=== PATIENT | male | born 1955 | race Caucasian/White ===

== ENCOUNTER → 2017-11-16 | Outpatient (CLI) | payer OTHER ==
[~2017-11-16] MED LIST: MULT-506 PO; OMEG10007 PO; OXYC-57 PO; POTA1080 PO
== END | disposition home or self-care (01) ==
LOC: C.PATHSPEC 17:22
PROVIDERS: ATTEND Plastic Surgery
DX: D22.5 Melanocytic nevi of trunk (principal)

== ENCOUNTER 2018-09-06 10:40 | Inpatient (IN) ==
--- OUTSIDE RECORDS SUMMARY | 2018-09-06 10:42 | External Medical Summary | Continuity of Care Document ---
:1955 Author Name Victoriano Pagan, Provider Address Unavailable Unavailable , Care Team Providers Name Role Phone Unavailable Unavailable Unavailable Rd Madison [email or web address] Problems BPH (benign prostatic hyperplasia) (600.00) (N40.0) Nephrolithiasis (592.0) (N20.0) Benign prostatic hypertrophy with urinary obstruction (600.0 1) (N40.1) Melanoma (172.9) (C43.9) History of basal cell carcinoma (V10.83) (Z85.828) Encounter for prostate cancer screening (V76.44) (Z12.5) History of malignant melanoma of skin (V10.82) (Z85.820) Atypical nevi (216.9) (D22.9) Verrucous papule (702.19) (L82.1) Seborrheic dermatitis (690.10) (L21.9) Basal cell carcinoma of face (173.31) (C44.310) Neoplasm of uncertain behavior of skin (238.2) (D48.5) Nevus, melanocytic (216.9) (D22.9) Other benign neoplasm of skin (216.9) (D23.9) Allergies and Adverse Reactions No Known Drug Allergies (Allergy) Medications Red Yeast Rice CAPS , M.D. Refills: 0 Aspirin 81 MG TABS , M.D. Refills: 0 Lutein 20 MG Oral Tablet , M.D. Refills: 0 Fish Oil CAPS , M.D. Refills: 0 Potassium Citrate ER 10 MEQ (1080 MG) Or al Tablet Extended Release; TAKE 1 TABLET TWICE DAILY. Latasha Madison Start: 23-Apr-2012 Quantity: 180 Refills: 3 Procedures History of Renal Lithotripsy Status: Com pleted History of Jaw Surgery Status: Completed Immunizations Immunizations not documented Family History Unknown Family Member Family history of Colon Cancer (V16.0) Status: Active C omments: Family History Mother Family history of macular degeneration (V19.19) (Z83.518) St atus: Active Sibling Family history of hypertension (V17.49) (Z82.49) Status: Act ami Social History - Smoking Status Never smoker Plan of Treatment Planned Observations Planned Goals not documented Results No Known Results Results not documented Encounters Appointment; Samantha Kwong PA-C 30-Nov-2017 10:30 Encounter Diagnosis: Problem not documented Appointment; Mariah Martinez M.D. 16-Nov-2017 13:00 Encounter Diagnosis: Problem not documented Appointment; Susan Palmer PA-C 08-Aug-2017 10:30 Encounter Diagnosis: Problem not documented Appointment; Ernesto Doss M.D. 15-Feb-2017 10:40 Encounter Diagnosis: Problem not documented
[2018-09-06] MEDS ORDERED: KETOROLAC TROMETHAMINE 15 MG/ML VIAL IV STA (10:51)
[2018-09-06] MEDS ORDERED: SODIUM CHLORIDE 0.9% 1000ML 1,000 ML IV SCH (11:00)
[2018-09-06] MEDS ORDERED: ACETAMINOPHEN 1,000 MG/100 ML VIAL IV STA (11:21)
[2018-09-06] MEDS ORDERED: ONDANSETRON INJ 2 MG/ML 2 ML VIAL IV STA (11:21)
[2018-09-06] MEDS ORDERED: MoRPHine SULFATE 10 MG/ML CARP/VIAL IV STA ×2 (11:21→13:07)
[2018-09-06 11:37] LABS: Basophils # (auto) 0.02 K/uL (0-0.2); Basophils % (auto) 0.3 %; Eosinophils # (auto) 0.12 K/uL (0-0.5); Eosinophils % (auto) 2.1 %; Hematocrit (blood only) 45.3 % (42-52); Hemoglobin 16.6 g/dL (14.0-18.0); Immature Granulocytes # (auto) 0.01 K/uL (0.00-0.02); Immature Granulocytes % (auto) 0.2 %; Lymphocytes # (auto) 1.03 K/uL (1.2-3.4); Lymphocytes % (auto) 17.7 %; Mean Corpuscular Hgb Conc 36.6 g/dL (32-36); Mean Corpuscular Volume 84.7 fL (80-100); Mean Platelet Volume 8.9 fL (7.4-10.4); Monocytes # (auto) 0.37 K/uL (0.11-0.59); Monocytes % (auto) 6.3 %; Neutrophils # (auto) 4.28 K/uL (1.4-6.5); Neutrophils % (auto) 73.4 %; Platelet Count 158 K/uL (130-400); RDW Coefficient of Variation 12.8 % (11.5-14.5); RDW Standard Deviation 38.6 fL (36.4-46.3); Red Blood Count 5.35 M/uL (4.7-6.1); White Blood Count 5.83 K/uL (4.8-10.8)
[2018-09-06 11:37] LABS: Appearance Urine Clear (Clear); Bacteria Urine Automated Negative (Negative); Bilirubin Urine Negative (Negative); Blood Urine 3+ (Negative); Color Urine Yellow; Glucose Urine UA Negative (Negative); Ketones Urine Negative (Negative); Leukocyte Esterase Urine Trace (Negative); Nitrite Urine Negative (Negative); Protein Urine Trace (Negative); RBC Urine Automated >30 /hpf (0-4); Specific Gravity Urine 1.021 (1.000-1.030); Urobilinogen Urine Negative (Negative)
[2018-09-06 12:06] LABS: Albumin Level 3.9 gm/dl (3.4-5.0); Calcium 8.5 mg/dl (8.5-10.1); Creatinine Clr Calc Pharmacy 76.7 ml/min; Est GFR (African American) 83.3; Est GFR (Non-African American) 71.9; Potassium 3.8 mmol/L (3.5-5.1)
[2018-09-06 12:10] LABS: Albumin Globulin Ratio 1.1 (0.9-2); Bilirubin,Total 0.9 mg/dl (0.2-1); Globulin 3.5 gm/dl (2.5-4.0); Total Protein 7.4 gm/dl (6.4-8.2)
[2018-09-06] MEDS ORDERED: IOVERSOL 100ml IV PRN (12:27)
--- NOTE | 2018-09-06 12:41 | CT Scan Report ---
CT abd pelvis IV con only CLINICAL HISTORY: 63 years-old Male presenting with left flank pain, history of kidney stones. TECHNIQUE: Multidetector CT of the abdomen and pelvis was performed after the administration of intra venous contrast. IV contrast: 94 mL of Optiray 320. One or more dose lowering techniques were used co nsistent with the principles of ALARA (as low as reasonably achievable), including automatic exposure control, mA or kV adjustment to individual patient size, and/or use of iterative reconstruction. COMPARISON: 03/10/2007.. CT DOSE (mGy.cm): The estimated cumulative dose is 476.14 mGy.cm. FINDINGS: Bobbin Winder topogram: Vasectomy clips noted. Lung bases: Normal heart size. No pericardial or pleural effusion. Minimal dependent changes likely a telectasis. Liver: Normal morphology. No liver lesion. Patent hepatic vasculature. Biliary: No intrahepatic or extrahepatic biliary ductal dilatation. Normal gallbladder. Pancreas: Normal. Spleen: Normal. Adrenal glands: Normal. Kidneys and ureters: Moderate left hydroureteronephrosis. Innumerable left renal calculi. Delayed per fusion of the left kidney with moderate to severe left perinephric fat infiltration. Expansion of the left renal parenchyma. There is no significant parenchymal hypoattenuation. Right kidney normal. Dis hans left ureteral calculus measuring 6 mm, which is similar to prior and likely nonobstructing. Previ ously noted adjacent distal left ureteral calculus has migrated to the left ureterovesical junction a nd is likely the source of the presumed obstruction or partial obstruction. This measures 6 mm. Bladder: Nonobstructing bladder calculus measuring 5 mm noted. This is also new from prior. Pelvic organs: Prostate and seminal vesicles normal. Bowel: Normal appendix. No bowel obstruction. Peritoneal cavity: No free fluid or intraperitoneal gas. Lymph nodes: No enlarged lymph nodes in the abdomen or pelvis. Vasculature: Atherosclerosis of the normal caliber abdominal aorta. IVC patent. Abdominal wall: Fat-containing inguinal hernias suggested. Musculoskeletal: Degenerative changes of the spine. IMPRESSION: 1. Obstructing or partially obstructing 6 mm calculus at the left ureterovesical junction new from p rior exam. Persistence nonobstructing 6 mm calculus in the distal left ureter. Nonobstructing bladder calculus also noted, new from prior. 2. Moderate left hydroureteronephrosis. Innumerable nonobstructing left renal calculi. Electronically signed by: Casey Loomis M.D. 09/06/2018 12:39 PM
[2018-09-06] MEDS ORDERED: PROCHLORPERAZINE 2 ML IV ONE (14:04)
[2018-09-06] MEDS ORDERED: PROMETHAZINE HCL 12.5 MG in SODIUM CHLORIDE 0.9% 50 ML IV PRN (14:27)
[2018-09-06] MEDS ORDERED: HYDROmorphone INJ 1 MG/ML SYRINGE IV PRN (14:28)
[2018-09-06] MEDS ORDERED: cefTRIAXone SODIUM 1,000 MG in DEXTROSE 5% 50 ML IV SCH (14:30)
--- NOTE | 2018-09-06 14:46 | History & Physical Report ---
Date of Service September 06, 2018 Assessment & Plan (1) Hydroureteronephrosis: Due to obstructing left UVJ stone - Consult urology for additional interventions - spoke with SHAWN Mckinnon regarding consult - NPO after midnight in anticipation of potential procedure tomorrow - IVF hydration with lactated ringers - Monitor labs - BUN mildly elevated at present - Started empiric antibiotics (ceftriaxone) due to urinary stasis - Pain control with hydromorphone/Toradol - Alternating Zofran/Phenergan for nausea (2) Kidney stones: See above plan of care. Patient seen and reviewed with attending physician, Dr. Patricio. Plan of care discussed and as outlined above. Daughter updated at bedside. All questions answered. Carter Pham PA-C History of Present Illness Chief Complaint: Left flank pain Primary Care Provider: Soo Christopher DO This is a 63 y/o male with a PMH of recurrent nephrolithiasis, melanoma and basal cell carcinoma who presents to the ED today with left flank pain, nausea and vomiting, found secondary to obstructing left UVJ stone. Last week, pt had a one day episode of gross hematuria but no pain - resolved without intervention and felt fine until this morning. Around 8 am today, pt started with left flank pain that radiates to left thoracic area and LLQ of abdomen. No radiation to groin. Associated nausea with one episode of non-bloody emesis. Pain at its worst was 8-9 out of 10. In ED, pt has received morphine, toradol, zofran and compazine for symptoms with partial improvement. No gross hematuria today. Pt had chills this morning but denies fevers or sweats. He reports that his last episode of obstructing stone was a few years ago. He was seen by Dr. Madison for urology in the past but has not been seen for a few years since he was doing better. Pt reports that he drinks around 1 gallon of water per day, which seems to help with stone prevention. He does drink ~24 oz of coffee daily but denies iced tea/soda. He did try two Percocet that he had leftover from episode in 2016 for his pain this morning but no relief. Allergies Allergy/AdvReac Type Severity Reaction Status Date / Time No Known Allergies Allergy Unknown Verified 09/06/18 11:37 Home Medications Home Medications Medication Instructions Recorded Confirmed Type aspirin 81 mg PO DAILY 09/06/18 09/06/18 History lutein 6 mg PO DAILY 09/06/18 09/06/18 History omega 1-dlp-cmz-fish oil [Fish Oil] 1 cap PO DAILY 09/06/18 09/06/18 History potassium citrate 10 meq PO BID 09/06/18 09/06/18 History red yeast rice 1,200 mg PO DAILY 09/06/18 09/06/18 History Past Med/Surg History Medical History Kidney stones (Chronic) History of basal cell carcinoma (Resolved) History of melanoma (Resolved) Surgical History History of lithotripsy multiple procedures History of nephrolithotomy with removal of calculi Family History Father Hypertension Stroke Mother Hypertension Pancreatic cancer COPD (chronic obstructive pulmonary disease) CHF (congestive heart failure) Diabetes Sister Ulcerative colitis Social History Preferred Language: [employer] Required: No Beliefs That Will Affect Care: None Current Living Situation: Alone current occupational status: retired Other Information That Helps Us Care for You: No Feels Safe at Home: Yes Safety Concerns: Feels Safe At This Time Smoking Status: Never smoker Hx Alcohol Use: Yes Alcohol type: beer Alcohol Intake Frequency Comment: "occasional" Hx Substance Use: No Review of Systems Review of Systems: All systems reviewed & are unremarkable except as noted in HPI & below Constitutional: + chills; no fever, no sweats and no fatigue Eyes: no diplopia and no worsening vision Ear, Nose, Mouth, Throat: no nasal congestion, no nasal discharge, no sore throat and no dysphagia Respiratory: no cough, no dyspnea, no hemoptysis and no wheezing Cardiovascular: no chest pain, no palpitations, no lightheadedness, no syncope and no edema Gastrointestinal: + abdominal pain, + nausea and + vomiting; no change in bowel habits and no diarrhea/loose stools Genitourinary: + flank pain; no urinary frequency and no hematuria Musculoskeletal: no back pain, no neck pain, no joint pain and no myalgia Integumentary: no rash and no skin ulcer Neurologic: no falls, no tingling, no numbness, no tremor(s), no seizure-like activity, no headache(s) and no confusion Psychiatric: no depression and no anxiety Physical Exam Constitutional: WD/WN, vitals as above + uncomfortable Eyes: PERRL, conjunctivae normal, anicteric sclerae ENMT: external ear and nose normal, oropharynx normal Neck: trachea midline Respiratory: no respiratory distress and does not use accessory muscles Auscultation: lungs clear to auscultation bilaterally; no rales, no rhonchi and no wheezes Cardiovascular: Rate/Rhythm: regular rate and regular rhythm Heart Sounds: no gallop, no murmur and no cardiac rub Vessels: no carotid bruit Extremities: normal capillary refill; no calf tenderness and no edema Gastrointestinal (Abdomen): Inspection/Auscultation: normal bowel sounds; abdomen not distended Percussion/Palpation: + abdomen tender (diffusely but worse in LLQ and left flank area) and abdomen soft +left CVA tenderness Musculoskeletal: Head/Neck/Chest: normocephalic, head atraumatic and neck supple Extremities: no muscle atrophy, no cyanosis and no clubbing Skin: no rashes, warm and dry Neurologic: moves all extremities; no focal motor deficits Speech / Cognition: no expressive aphasia Cranial Nerves: tongue midline Psychiatric: A+Ox3, euthymic affect Results & Data Vital Signs (Past 12 Hours) Vital Signs Temp Pulse Pulse Resp BP BP Pulse Ox 09/06/18 13:45 66 15 128/79 09/06/18 13:40 54 L 17 09/06/18 13:31 48 L 14 101/65 09/06/18 13:30 49 L 12 09/06/18 13:20 46 L 12 09/06/18 13:16 53 L 11 L 113/70 09/06/18 13:10 54 L 15 09/06/18 13:01 52 L 12 119/72 09/06/18 13:00 54 L 16 09/06/18 12:56 55 L 15 116/74 09/06/18 12:50 48 L 7 L 09/06/18 12:46 55 L 55 L 13 116/74 116/74 98 09/06/18 12:40 59 L 13 09/06/18 12:34 60 13 128/78 09/06/18 12:33 60 18 09/06/18 12:20 56 L 12 09/06/18 12:16 53 L 14 109/70 09/06/18 12:10 56 L 14 09/06/18 12:01 48 L 111/70 09/06/18 12:00 52 L 15 09/06/18 11:59 57 L 14 09/06/18 11:46 53 L 13 103/73 09/06/18 10:43 36.5 C 67 20 190/112 H 96 Laboratory Results Laboratory Results - last 24 hr 09/06/18 09/06/18 09/06/18 11:02 11:02 11:20 WBC 5.83 RBC 5.35 Hgb 16.6 Hct 45.3 MCV 84.7 MCH 31.0 MCHC 36.6 H RDW Std Deviation 38.6 RDW Coeff of David 12.8 Plt Count 158 MPV 8.9 Immature Gran % (Auto) 0.2 Neut % (Auto) 73.4 Lymph % (Auto) 17.7 [place] % (Auto) 6.3 Eos % (Auto) 2.1 Baso % (Auto) 0.3 Immature Gran # (Auto) 0.01 Neut # (Auto) 4.28 Lymph # (Auto) 1.03 L [place] # (Auto) 0.37 Eos # (Auto) 0.12 Baso # (Auto) 0.02 Sodium 135 L Potassium 3.8 Chloride 105 Carbon Dioxide 24 Anion Gap 6.0 BUN 24 H Creatinine 1.09 Est Cr Clr Drug Dosing 76.7 Est GFR ( Amer) 83.3 Est GFR (Non-Af Amer) 71.9 BUN/Creatinine Ratio 22.0 H Glucose 118 H Calcium 8.5 Total Bilirubin 0.9 AST 26 ALT 33 Alkaline Phosphatase 66 Total Protein 7.4 Albumin 3.9 Globulin 3.5 Albumin/Globulin Ratio 1.1 Lipase 100 Specimen Hemolysis Urine Color Yellow Urine Appearance Clear Urine pH 5.0 Ur Specific [place] 1.021 Urine Protein Trace H Urine Glucose (UA) Negative Urine Ketones Negative Urine Blood 3+ H Urine Nitrite Negative Urine Bilirubin Negative Urine Urobilinogen Negative Ur Leukocyte Esterase Trace H Urine WBC (Auto) 1-5 Urine RBC (Auto) >30 H U Hyaline Cast (Auto) 1-5 U Epithel Cells (Auto) 5-10 H Urine Bacteria (Auto) Negative Diagnostic Findings CT Abd/Pel - IMPRESSION: 1. Obstructing or partially obstructing 6 mm calculus at the left ureterovesical junction new from prior exam. Persistence nonobstructing 6 mm calculus in the distal left ureter. Nonobstructing bladder calculus also noted, new from prior. 2. Moderate left hydroureteronephrosis. Innumerable nonobstructing left renal calculi. Medications Administered Ioversol (Optiray 320 100ml) 94 ml IV ONCE PRN PRN Reason: Interaction Checking Stop: 09/10/18 12:26 Last Admin: 09/06/18 12:28 Dose: 94 ml Documented by: [id number] Discontinued Medications Sodium Chloride (Nss 1000ml) 1,000 mls @ 999 mls/hr IV .Q1H1M SHAWN Stop: 09/06/18 12:00 Last Infusion: 09/06/18 12:22 Dose: 0 mls/hr Documented by: [id number] Admin: 09/06/18 11:14 Dose: 999 mls/hr Documented by: [id number] Acetaminophen (Ofirmev) 1,000 mg in 100 mls @ 400 mls/hr IV NOW STA Stop: 09/06/18 11:35 Last Infusion: 09/06/18 12:21 Dose: 0 mls/hr Documented by: [id number] Admin: 09/06/18 11:25 Dose: 400 mls/hr Documented by: [id number] Prochlorperazine (Compazine) 2 mls @ 1 mls/min IV ONE ONE Stop: 09/06/18 14:05 Last Admin: 09/06/18 14:17 Dose: 1 mls/min Documented by: [id number] Ketorolac Tromethamine (Toradol) 15 mg IV NOW STA Stop: 09/06/18 10:52 Last Admin: 09/06/18 11:14 Dose: 15 mg Documented by: [id number] Morphine Sulfate (Morphine Sulfate) 8 mg IV NOW STA Stop: 09/06/18 11:22 Last Admin: 09/06/18 11:26 Dose: 8 mg Documented by: [id number] Morphine Sulfate (Morphine Sulfate) 10 mg IV NOW STA Stop: 09/06/18 13:08 Last Admin: 09/06/18 13:11 Dose: 10 mg Documented by: [id number] Ondansetron HCl (Zofran) 4 mg IV NOW STA Stop: 09/06/18 11:22 Last Admin: 09/06/18 11:25 Dose: 4 mg Documented by: [id number] Code Status & VTE Plan Code Status Full resuscitation Supervising Physician Co-Signing Physician Notes Attending addendum: Patient seen and examined, care coordinated with Danielle Almodovar PA-C This is a 62-year-old male with history of recurrent renal stones/ureteric stone, underwent multiple lithotripsy/ureteric stent in the past Follows with [facility] physician group urology Presents with 2 to 3 days of left flank pain with radiation down to groin, associated with nausea vomiting, afebrile, noticed hematuria yesterday, none today CT abdomen pelvis shows a 6 mm obstructing stone at the ureteral vesicle junction, Patient will be admitted to medical floor, IV fluids, empiric antibiotic with IV Rocephin, urology consulted, patient will need urologic procedure/stent CODE STATUS full code discussed with patient DVT prophylaxis SCD and teds, pharmacological anticoagulation avoided, as patient will need a urology procedure Disposition, expected to be discharged home when medically stable Plan of care updated to patient's daughter present at bedside Please refer to further documentation by Danielle Lopez PA-C for discussion of other chronic issues Erica Patricio MD
[2018-09-06] MEDS ORDERED: POLYETHYLENE (MIRALAX) 17 GM PACK PO PRN (17:11)
[2018-09-06] MEDS ORDERED: ONDANSETRON INJ 2 MG/ML 2 ML VIAL IV PRN (17:11)
[2018-09-06] MEDS: LACTATED RINGER'S 1,000 ML IV SCH (17:43)
[2018-09-06] MEDS: cefTRIAXone SODIUM 2,000 MG in DEXTROSE 5% 50 ML IV SCH (17:58)
--- NOTE | 2018-09-06 18:35 | Emergency Department Note ---
Entered by Isabela Mejia acting as a scribe for Oral Neri MD History of Present Illness General Chief complaint: Kidney Stone Stated complaint: LT SIDED KIDNEY STONE Time Seen by Provider: 09/06/18 10:51 Source: patient Limitations: no limitations History of Present Illness Provider complaint: kidney stone Onset (ago): hour(s) 3 Location: abdomen Maximum Pain Intensity: 8 Associated symptoms: + denies other symptoms (diarrhea, congestion), + fever/chills (chills no fevers) and + other (+left abdominal pain ); no chest pain, no cough and no nausea/vomiting The patient is a 63 year old male who presents to the Emergency Room with complaints of kidney stone pain that began 3 hours prior to arrival. The patient states that his pain in his left abdomen. The patient states that he has a history of kidney stones and states that this pain feels similar to his pain from prior kidney stones. The patient states that he has chills but denies any fevers, chest pain, cough, congestion, nausea, vomiting, or diarrhea. The patient states that he had blood in his urine yesterday but denies any blood in his urine today. The patient states that he just passed a kidney stone 1 week prior to arrival. The patient denies being on any blood thinners. Home Medications Home Medications Medication Instructions Recorded Confirmed Type aspirin 81 mg PO DAILY 09/06/18 09/06/18 History lutein 6 mg PO DAILY 09/06/18 09/06/18 History omega 2-pxb-xqz-fish oil [Fish Oil] 1 cap PO DAILY 09/06/18 09/06/18 History potassium citrate 10 meq PO BID 09/06/18 09/06/18 History red yeast rice 1,200 mg PO DAILY 09/06/18 09/06/18 History Allergies Allergy/AdvReac Type Severity Reaction Status Date / Time No Known Allergies Allergy Unknown Verified 09/06/18 11:37 Past Med/Surg History Medical History Kidney stones (Chronic) History of basal cell carcinoma (Resolved) History of melanoma (Resolved) Surgical History History of lithotripsy multiple procedures History of nephrolithotomy with removal of calculi Family History Father Hypertension Stroke Mother Hypertension Pancreatic cancer COPD (chronic obstructive pulmonary disease) CHF (congestive heart failure) Diabetes Sister Ulcerative colitis Social History current occupational status: retired Feels Safe at Home: Yes Smoking Status: Never smoker Hx Alcohol Use: Yes Alcohol Intake Frequency Comment: "occasional" Hx Substance Use: No Review of Systems See HPI for pertinent positives & negatives. and A total of 10 systems reviewed and were otherwise negative Physical Exam Vital Signs Vital Signs - 24 hr 09/06/18 10:43 09/06/18 11:46 09/06/18 11:59 Temperature 36.5 C Temperature Source Oral Sepsis Recent Fever Within 48 Hours No Sepsis New/Unexplained Change in Mental Status No Sepsis Action Taken by Nursing No Action Required Pulse Rate 67 53 L 57 L Pulse Rate [Apical] Respiratory Rate 20 13 14 Blood Pressure 190/112 H 103/73 Blood Pressure [Left Arm] Blood Pressure Mean 138 83 Blood Pressure Mean [Left Arm] Pulse Oximetry 96 Oxygen Delivery Method Room Air 09/06/18 12:00 09/06/18 12:01 09/06/18 12:10 Temperature Temperature Source Sepsis Recent Fever Within 48 Hours Sepsis New/Unexplained Change in Mental Status Sepsis Action Taken by Nursing Pulse Rate 52 L 48 L 56 L Pulse Rate [Apical] Respiratory Rate 15 14 Blood Pressure 111/70 Blood Pressure [Left Arm] Blood Pressure Mean 83 Blood Pressure Mean [Left Arm] Pulse Oximetry Oxygen Delivery Method 09/06/18 12:16 09/06/18 12:20 09/06/18 12:33 Temperature Temperature Source Sepsis Recent Fever Within 48 Hours Sepsis New/Unexplained Change in Mental Status Sepsis Action Taken by Nursing Pulse Rate 53 L 56 L 60 Pulse Rate [Apical] Respiratory Rate 14 12 18 Blood Pressure 109/70 Blood Pressure [Left Arm] Blood Pressure Mean 83 Blood Pressure Mean [Left Arm] Pulse Oximetry Oxygen Delivery Method 09/06/18 12:34 09/06/18 12:40 09/06/18 12:46 Temperature Temperature Source Sepsis Recent Fever Within 48 Hours Sepsis New/Unexplained Change in Mental Status Sepsis Action Taken by Nursing Pulse Rate 60 59 L 55 L Pulse Rate [Apical] 55 L Respiratory Rate 13 13 13 Blood Pressure 128/78 116/74 Blood Pressure [Left Arm] 116/74 Blood Pressure Mean 94 88 Blood Pressure Mean [Left Arm] 88 Pulse Oximetry 98 Oxygen Delivery Method Room Air 09/06/18 12:50 09/06/18 12:56 09/06/18 13:00 Temperature Temperature Source Sepsis Recent Fever Within 48 Hours Sepsis New/Unexplained Change in Mental Status Sepsis Action Taken by Nursing Pulse Rate 48 L 55 L 54 L Pulse Rate [Apical] Respiratory Rate 7 L 15 16 Blood Pressure 116/74 Blood Pressure [Left Arm] Blood Pressure Mean 88 Blood Pressure Mean [Left Arm] Pulse Oximetry Oxygen Delivery Method 09/06/18 13:01 09/06/18 13:10 09/06/18 13:16 Temperature Temperature Source Sepsis Recent Fever Within 48 Hours Sepsis New/Unexplained Change in Mental Status Sepsis Action Taken by Nursing Pulse Rate 52 L 54 L 53 L Pulse Rate [Apical] Respiratory Rate 12 15 11 L Blood Pressure 119/72 113/70 Blood Pressure [Left Arm] Blood Pressure Mean 87 84 Blood Pressure Mean [Left Arm] Pulse Oximetry Oxygen Delivery Method 09/06/18 13:20 09/06/18 13:30 09/06/18 13:31 Temperature Temperature Source Sepsis Recent Fever Within 48 Hours Sepsis New/Unexplained Change in Mental Status Sepsis Action Taken by Nursing Pulse Rate 46 L 49 L 48 L Pulse Rate [Apical] Respiratory Rate 12 12 14 Blood Pressure 101/65 Blood Pressure [Left Arm] Blood Pressure Mean 77 Blood Pressure Mean [Left Arm] Pulse Oximetry Oxygen Delivery Method 09/06/18 13:40 09/06/18 13:45 09/06/18 14:48 Temperature Temperature Source Sepsis Recent Fever Within 48 Hours Sepsis New/Unexplained Change in Mental Status Sepsis Action Taken by Nursing Pulse Rate 54 L 66 Pulse Rate [Apical] 52 L Respiratory Rate 17 15 18 Blood Pressure 128/79 Blood Pressure [Left Arm] 126/72 Blood Pressure Mean 95 Blood Pressure Mean [Left Arm] 90 Pulse Oximetry Oxygen Delivery Method GENERAL: Awake, alert, uncomfortable appearing, no distress. HENT: Normocephalic, atraumatic. TM's normal. Oropharynx with dry mucous membranes and otherwise unremarkable. EYES: PERRL. EOMI. Normal conjunctiva. Sclera non-icteric. NECK: Supple. No nuchal rigidity. FROM. No JVD or bruit. RESPIRATORY: Normal exam. CARDIAC: RRR. No murmur. ABDOMEN: Soft, non distended. Mild LLQ and left flank tenderness. No rebound or guarding. No masses. RECTAL: Deferred. MUSCULOSKELETAL: Unremarkable. No edema. No discoloration. Gross motor strength symmetric. NEURO: Normal sensorium. No sensory or motor deficits noted. SKIN: No rash or jaundice noted. LYMPH: No adenopathy. Course 1118: The patient was evaluated in room C12B, and a complete history and physical examination were performed. 1341: I checked on the patient and updated him on his results. The patient still has nausea. 1408: I discussed the patient's case with Dr. Mihir Roberts Hospitalist who will evaluate the patient for further hospitalization. Consultations Consultation #1: Dr. Mihir Roberts Hospitalist Time: 14:08 Administered Medications Lactated Ringer's (Lr) 1,000 mls @ 125 mls/hr IV .Q8H SHAWN Stop: 10/06/18 14:29 Last Infusion: 09/06/18 17:58 Dose: 0 mls/hr Documented by: [id number] Admin: 09/06/18 17:43 Dose: 125 mls/hr Documented by: [id number] Ceftriaxone Sodium 2,000 mg/ (Dextrose) 70 mls @ 100 mls/hr IV Q24H SHAWN; Pro tocol Stop: 09/16/18 17:59 Last Admin: 09/06/18 17:58 Dose: 100 mls/hr Documented by: [id number] Ondansetron HCl (Zofran) 4 mg IV Q6H PRN PRN Reason: Nausea Stop: 10/06/18 17:10 Last Admin: 09/06/18 17:42 Dose: 4 mg Documented by: [id number] Discontinued Medications Sodium Chloride (Nss 1000ml) 1,000 mls @ 999 mls/hr IV .Q1H1M SHAWN Stop: 09/06/18 12:00 Last Infusion: 09/06/18 12:22 Dose: 0 mls/hr Documented by: [id number] Admin: 09/06/18 11:14 Dose: 999 mls/hr Documented by: [id number] Acetaminophen (Ofirmev) 1,000 mg in 100 mls @ 400 mls/hr IV NOW STA Stop: 09/06/18 11:35 Last Infusion: 09/06/18 12:21 Dose: 0 mls/hr Documented by: [id number] Admin: 09/06/18 11:25 Dose: 400 mls/hr Documented by: [id number] Prochlorperazine (Compazine) 2 mls @ 1 mls/min IV ONE ONE Stop: 09/06/18 14:05 Last Admin: 09/06/18 14:17 Dose: 1 mls/min Documented by: [id number] Ceftriaxone Sodium 1,000 mg/ (Dextrose) 60 mls @ 100 mls/hr IV DAILY SHAWN; Protocol Stop: 09/16/18 14:29 Last Admin: 09/06/18 17:53 Dose: Not Given Documented by: [id number] Ioversol (Optiray 320 100ml) 94 ml IV ONCE PRN PRN Reason: Interaction Checking Stop: 09/10/18 12:26 Last Admin: 09/06/18 12:28 Dose: 94 ml Documented by: [id number] Ketorolac Tromethamine (Toradol) 15 mg IV NOW STA Stop: 09/06/18 10:52 Last Admin: 09/06/18 11:14 Dose: 15 mg Documented by: [id number] Morphine Sulfate (Morphine Sulfate) 8 mg IV NOW STA Stop: 09/06/18 11:22 Last Admin: 09/06/18 11:26 Dose: 8 mg Documented by: [id number] Morphine Sulfate (Morphine Sulfate) 10 mg IV NOW STA Stop: 09/06/18 13:08 Last Admin: 09/06/18 13:11 Dose: 10 mg Documented by: [id number] Ondansetron HCl (Zofran) 4 mg IV NOW STA Stop: 09/06/18 11:22 Last Admin: 09/06/18 11:25 Dose: 4 mg Documented by: [id number] Medical Decision Making Differential Diagnosis Differential diagnosis: Etiologies such as shingles, pyelonephritis/UTI, renal colic, appendicitis, diverticulitis, mesenteric ischemia, torsion, aortic pathology, infections, inflammatory bowel disease, bowel obstruction, PUD, biliary pathology, as well as others were entertained.. Medical Records Attestation: I reviewed the patient's medical records. Home Medications Current Medication List: was personally reviewed by me Laboratory Data Attestation: I reviewed the patient's lab results. Result diagrams: 09/06/18 11:02 09/06/18 11:02 Lab Results 09/06/18 09/06/1809/06/19 Range/Units 11:02 11:02 11:20 WBC 5.83 (4.8-10.8) K/uL RBC 5.35 (4.7-6.1) M/uL Hgb 16.6 (14.0-18.0) g/dL Hct 45.3 (42-52) % MCV 84.7 (80-100) fL MCH 31.0 (25-34) pg MCHC 36.6 H (32-36) g/dL RDW Std Deviation 38.6 (36.4-46.3) fL RDW Coeff of David 12.8 (11.5-14.5) % Plt Count 158 (130-400) K/uL MPV 8.9 (7.4-10.4) fL Immature Gran % (Auto) 0.2 % Neut % (Auto) 73.4 % Lymph % (Auto) 17.7 % [place] % (Auto) 6.3 % Eos % (Auto) 2.1 % Baso % (Auto) 0.3 % Immature Gran # (Auto) 0.01 (0.00-0.02) K/uL Neut # (Auto) 4.28 (1.4-6.5) K/uL Lymph # (Auto) 1.03 L (1.2-3.4) K/uL [place] # (Auto) 0.37 (0.11-0.59) K/uL Eos # (Auto) 0.12 (0-0.5) K/uL Baso # (Auto) 0.02 (0-0.2) K/uL Sodium 135 L (136-145) mmol/L Potassium 3.8 (3.5-5.1) mmol/L Chloride 105 (98-107) mmol/L Carbon Dioxide 24 (21-32) mmol/L Anion Gap 6.0 (3-11) BUN 24 H (7-18) mg/dl Creatinine 1.09 (0.6-1.4) mg/dl Est Cr Clr Drug Dosing 76.7 ml/min Est GFR ( Amer) 83.3 Est GFR (Non-Af Amer) 71.9 BUN/Creatinine Ratio 22.0 H (10-20) Glucose 118 H (70-99) mg/dl Calcium 8.5 (8.5-10.1) mg/dl Total Bilirubin 0.9 (0.2-1) mg/dl AST 26 (15-37) U/L ALT 33 (12-78) U/L Alkaline Phosphatase 66 (45-117) U/L Total Protein 7.4 (6.4-8.2) gm/dl Albumin 3.9 (3.4-5.0) gm/dl Globulin 3.5 (2.5-4.0) gm/dl Albumin/Globulin Ratio 1.1 (0.9-2) Lipase 100 (73-393) U/L Specimen Hemolysis Urine Color Yellow Urine Appearance Clear (Clear) Urine pH 5.0 (4.5-7.5) Ur Specific [place] 1.021 (1.000-1.030) Urine Protein Trace H (Negative) Urine Glucose (UA) Negative (Negative) Urine Ketones Negative (Negative) Urine Blood 3+ H (Negative) Urine Nitrite Negative (Negative) Urine Bilirubin Negative (Negative) Urine Urobilinogen Negative (Negative) Ur Leukocyte Esterase Trace H (Negative) Urine WBC (Auto) 1-5 (0-5) /hpf Urine RBC (Auto) >30 H (0-4) /hpf U Hyaline Cast (Auto) 1-5 (0-5) /lpf U Epithel Cells (Auto) 5-10 H (0-5) /lpf Urine Bacteria (Auto) Negative (Negative) Imaging Data Radiologist's Impression: Radiology results as stated below per my review and the radiologist's interpretation: CT abd pelvis IV con only CLINICAL HISTORY: 63 years-old Male presenting with left flank pain, history of kidney stones. TECHNIQUE: Multidetector CT of the abdomen and pelvis was performed after the administration of intravenous contrast. IV contrast: 94 mL of Optiray 320. One or more dose lowering techniques were used consistent with the principles of ALARA (as low as reasonably achievable), including automatic exposure control, mA or kV adjustment to individual patient size, and/or use of iterative reconstruction. COMPARISON: 03/10/2007.. CT DOSE (mGy.cm): The estimated cumulative dose is 476.14 mGy.cm. FINDINGS: Supply Chain Analyst topogram: Vasectomy clips noted. Lung bases: Normal heart size. No pericardial or pleural effusion. Minimal dependent changes likely atelectasis. Liver: Normal morphology. No liver lesion. Patent hepatic vasculature. Biliary: No intrahepatic or extrahepatic biliary ductal dilatation. Normal gallbladder. Pancreas: Normal. Spleen: Normal. Adrenal glands: Normal. Kidneys and ureters: Moderate left hydroureteronephrosis. Innumerable left renal calculi. Delayed perfusion of the left kidney with moderate to severe left perinephric fat infiltration. Expansion of the left renal parenchyma. There is no significant parenchymal hypoattenuation. Right kidney normal. Distal left ureteral calculus measuring 6 mm, which is similar to prior and likely nonobstructing. Previously noted adjacent distal left ureteral calculus has migrated to the left ureterovesical junction and is likely the source of the presumed obstruction or partial obstruction. This measures 6 mm. Bladder: Nonobstructing bladder calculus measuring 5 mm noted. This is also new from prior. Pelvic organs: Prostate and seminal vesicles normal. Bowel: Normal appendix. No bowel obstruction. Peritoneal cavity: No free fluid or intraperitoneal gas. Lymph nodes: No enlarged lymph nodes in the abdomen or pelvis. Vasculature: Atherosclerosis of the normal caliber abdominal aorta. IVC patent. Abdominal wall: Fat-containing inguinal hernias suggested. Musculoskeletal: Degenerative changes of the spine. IMPRESSION: 1. Obstructing or partially obstructing 6 mm calculus at the left ureterovesical junction new from prior exam. Persistence nonobstructing 6 mm calculus in the distal left ureter. Nonobstructing bladder calculus also noted, new from prior. 2. Moderate left hydroureteronephrosis. Innumerable nonobstructing left renal calculi. Electronically signed by: Casey Loomis M.D. 09/06/2018 12:39 PM Blood Pressure Blood Pressure Findings: Normal blood pressure MDM Narrative The patient is a pleasant 63-year-old gentleman with a past medical history of kidney stones who presents emergency department with acute onset left-sided flank pain that began this morning per hpi. He also reports blood in his urine. On arrival patient is uncomfortable but no acute distress, afebrile stable vital signs. On exam the patient appears clinically dry. He exhibits Mild LLQ and left flank tenderness. WBC, H/H, platelets wnl. Chemistry without acidosis. BUN/creatinine > 20, consistent with the patient's clinically dry appearance. LFTs and electrolytes unremarkable. UA negative for infection but with RBCs> 30. CT abdomen pelvis demonstrates obstructing left UVJ ureteral stone with associated hydronephrosis. Patient feeling some improvement after IV fluid hydration, and repeat doses of weight-based morphine for this 90 kg gentleman. While expressing some improvement still reports feeling quite uncomfortable. Thus, reasonable to admit the patient for continued pain control and likely urology consultation. Case was discussed with Pascual Ravi PA-C, who will evaluate the patient for admission. Impression & Plan Hydronephrosis with urinary obstruction due to ureteral calculus, Ureterolithiasis Discharge Plan Visit Data *Final* Discharge Date/Time: 09/06/18 16:07 Chief Complaint: Kidney Stone Stated Complaint: LT SIDED KIDNEY STONE ED Provider: Oral Neri Discharge Problem: Hydronephrosis with urinary obstruction due to ureteral calculus, Ureterolithiasis Patient Disposition: Admitted As Inpatient Discharge Instructions Interventions: ED Discharge Assessment Last Done: 09/06/18 16:07 The scribe's documentation has been prepared under my direction and personally reviewed by me in its entirety. I confirm that the note above accurately reflects all work, treatment, procedures, and medical decision making performed by me.
[2018-09-06] MEDS: KETOROLAC TROMETHAMINE 15 MG/ML VIAL IV PRN (18:54)
[2018-09-06 21:38] LABS: Appearance Urine Clear (Clear); Bilirubin Urine Negative (Negative); Blood Urine 2+ (Negative); Color Urine Yellow; Glucose Urine UA Negative (Negative); Ketones Urine Trace (Negative); Leukocyte Esterase Urine Negative (Negative); Nitrite Urine Negative (Negative); Protein Urine Trace (Negative); Specific Gravity Urine 1.015 (1.000-1.030); Urobilinogen Urine Negative (Negative)
[2018-09-06 22:19] LABS: Bacteria Urine Negative (Negative); Epithelial Cell Urine 0-5 /lpf (0-5); WBC Urine 0-5 /hpf (0-5)
[2018-09-07] MEDS: LACTATED RINGER'S 1,000 ML IV SCH ×3 (02:17→18:48)
[2018-09-07 07:02] LABS: Hematocrit (blood only) 40.5 % (42-52); Hemoglobin 14.3 g/dL (14.0-18.0); Mean Corpuscular Hgb Conc 35.3 g/dL (32-36); Mean Platelet Volume 8.6 fL (7.4-10.4); Platelet Count 130 K/uL (130-400); RDW Standard Deviation 40.9 fL (36.4-46.3); Red Blood Count 4.71 M/uL (4.7-6.1); White Blood Count 7.74 K/uL (4.8-10.8)
[2018-09-07 07:39] LABS: BUN Creatinine Ratio 19.1 (10-20); Calcium 7.9 mg/dl (8.5-10.1); Creatinine Clr Calc Pharmacy 61.5 ml/min; Est GFR (African American) 70.6; Est GFR (Non-African American) 60.9
[2018-09-07] MEDS: KETOROLAC TROMETHAMINE 15 MG/ML VIAL IV PRN (08:36)
--- NOTE | 2018-09-07 09:26 | Urology Consultation ---
Date of Consultation September 07, 2018 Assessment & Plan (1) Hydronephrosis with urinary obstruction due to ureteral calculus: Two obstructing left ureteral stones with resulting hydronephrosis and extensive left nephrolithiasis. Pain is persisting. Discussed ureteral stent placement today with patient. He is agreeable to proceed. Understands that he will need repeat procedure(s) for stone management due to significant stone burden. Procedure details and surgical risk reviewed. Patient added to OR schedule today for cystoscopy, left ureteral stent placement. Patient remains NPO. Preop antibiotic practice professional. (2) Hydroureteronephrosis: (3) Kidney stones: History of Present Illness Reason for Consultation: Nephrolithiasis, left ureteral stones Attending Physician: Erica Patricio MD History of Present Illness 63 YO male with left ureteral stones and extensive left-side nephrolithiasis. Patient is established with Dr. Madison, last seen in our outpatient clinic several years ago. Has transitioned care to PCP due to lack of stone symptoms. Current stone treatment includes potassium citrate. Patient reports worsening left abdominal/flank pain & vomiting yesterday bringing him to the ER. His CT scan is reviewed demonstrating significant left-side nephrolithiasis (100+stones) and two left ureteral stones with resulting left hydronephrosis. This morning, he reports continued flank pain. He continues to void spontaneously +frequency. No gross hematuria. No fever/chills. +Nausea. Allergies Allergy/AdvReac Type Severity Reaction Status Date / Time No Known Allergies Allergy Unknown Verified 09/06/18 11:37 Home Medications Home Medications Medication Instructions Recorded Confirmed Type aspirin 81 mg PO DAILY 09/06/18 09/06/18 History lutein 6 mg PO DAILY 09/06/18 09/06/18 History omega 0-fou-bxc-fish oil [Fish Oil] 1 cap PO DAILY 09/06/18 09/06/18 History potassium citrate 10 meq PO BID 09/06/18 09/06/18 History red yeast rice 1,200 mg PO DAILY 09/06/18 09/06/18 History Patient History Medical History Kidney stones (Chronic) History of basal cell carcinoma (Resolved) History of melanoma (Resolved) Surgical History History of lithotripsy multiple procedures History of nephrolithotomy with removal of calculi Family History Father Hypertension Stroke Mother Hypertension Pancreatic cancer COPD (chronic obstructive pulmonary disease) CHF (congestive heart failure) Diabetes Sister Ulcerative colitis Social History Preferred Language: Welsh 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 Beliefs That Will Affect Care: None Current Living Situation: Alone current occupational status: retired Other Information That Helps Us Care for You: No Feels Safe at Home: Yes Safety Concerns: Feels Safe At This Time Smoking Status: Never smoker Hx Alcohol Use: Yes Alcohol type: beer Alcohol Intake Frequency Comment: "occasional" Hx Substance Use: No Review of Systems Constitutional: no fever and no chills Eyes: no worsening vision Ear, Nose, Mouth, Throat: no hearing loss Respiratory: no dyspnea Cardiovascular: no chest pain Gastrointestinal: + abdominal pain and + nausea; no bloating Genitourinary: + urinary frequency; no difficulty urinating Musculoskeletal: + back pain Neurologic: no confusion Psychiatric: no problem reported Physical Exam Constitutional: WD/WN, vitals as above ENMT: Ears: no hearing impairment Neck: normal visual inspection Respiratory: normal respiratory effort; does not use accessory muscles Cardiovascular: Vessels: no JVD Gastrointestinal (Abdomen): Percussion/Palpation: + abdomen tender and abdomen soft Psychiatric: A+Ox3, euthymic affect Results & Data Vital Signs (Past 12 Hours) Vital Signs Temp Pulse Pulse Resp BP Pulse Ox 09/07/18 07:33 36.8 C 74 20 120/72 95 09/06/18 22:54 36.6 C 58 L 16 117/62 93
[2018-09-07] MEDS ORDERED: IOTHALAMATE MEGLUMINE II 17.2% 250 ML VIAL ONE (12:38)
[2018-09-07] MEDS ORDERED: PROPOFOL IV EMULSION 10 MG/ML 20 ML VIAL IV ONE (12:47)
[2018-09-07] MEDS ORDERED: fentaNYL citrate 100 MCG/2 ML VIAL ONE (12:47)
[2018-09-07] MEDS ORDERED: LIDOCAINE HCL 2% 2 ML VIAL/AMP(20MG/ML) INFIL ONE (12:47)
[2018-09-07] MEDS ORDERED: MIDAZOLAM HCL 1 MG/ML 2ML VIAL ONE (12:47)
--- NOTE | 2018-09-07 12:47 | Anesthesiology Consultation ---
Date of Service September 07, 2018 Assessment & Plan (1) Encounter for pre-operative examination: Chart Review Chart Review: Acceptable Risk for Surgery and Patient NOT seen in Pre Admission Testing Consults Requested none History Surgery Operation Date: 09/07/18 11:10 Proposed Procedures p Cystoscopy, Left Stent Placement - Lam Bolton II, DO Height/Weight Height: 5 ft 9.5 in Weight: 85 kg Allergies Allergy/AdvReac Type Severity Reaction Status Date / Time No Known Allergies Allergy Unknown Verified 09/06/18 11:37 Medications Home Medications Medication Instructions Recorded Confirmed Last Taken aspirin 81 mg PO DAILY 09/06/18 09/06/18 Unknown lutein 6 mg PO DAILY 09/06/18 09/06/18 Unknown omega 6-van-uet-fish oil [Fish Oil] 1 cap PO DAILY 09/06/18 09/06/18 Unknown potassium citrate 10 meq PO BID 09/06/18 09/06/18 Unknown red yeast rice 1,200 mg PO DAILY 09/06/18 09/06/18 Unknown Active Medications Generic Name Dose Route Start Last Admin Trade Name Freq PRN Reason Stop Dose Admin Hydromorphone HCl 1 mg 09/06/18 14:28 09/06/18 21:21 Dilaudid IV 09/20/18 14:27 1 mg Q4 PRN Administration Pain Promethazine HCl 12.5 mg/ 50.5 mls @ 202 mls/hr 09/06/18 14:27 09/06/18 22:21 Sodium Chloride IV 10/06/18 14:26 Infused Q6H PRN Infusion Nausea And Vomiting Lactated Ringer's 1,000 mls @ 125 mls/hr 09/06/18 14:30 09/07/18 10:28 Lr IV 10/06/18 14:29 125 mls/hr .Q8H SHAWN Administration Ceftriaxone Sodium 2,000 mg/ 70 mls @ 100 mls/hr 09/06/18 18:00 09/06/18 18:40 Dextrose IV 09/16/18 17:59 Infused Q24H SHAWN Infusion Protocol Ketorolac Tromethamine 15 mg 09/06/18 17:26 09/07/18 08:36 Toradol IV 09/11/18 17:25 15 mg Q6H PRN Administration Pain Ondansetron HCl 4 mg 09/06/18 17:11 09/06/18 17:42 Zofran IV 10/06/18 17:10 4 mg Q6H PRN Administration Nausea NPO Date Last Intake of Fluids: 09/06/18 Time Last Intake of Fluids: 22:30 Date Last Intake of Solids: 09/06/18 Time Last Intake of Solids: 22:30 Past Medical History Medical History Kidney stones (Chronic) History of basal cell carcinoma (Resolved) History of melanoma (Resolved) Past Family History Family History Father Hypertension Stroke Mother Hypertension Pancreatic cancer COPD (chronic obstructive pulmonary disease) CHF (congestive heart failure) Diabetes Sister Ulcerative colitis Past Surgical History Surgical History History of lithotripsy multiple procedures History of nephrolithotomy with removal of calculi Social History Smoking Status: Never smoker Hx Alcohol Use: Yes Alcohol type: beer alcohol intake frequency: a few times a month Alcohol Intake Frequency Comment: "once a week" Hx Substance Use: No Physical Exam Vital Signs Last Vital Signs Temp 37 C 09/07/18 12:35 Pulse 63 09/07/18 12:35 Resp 20 09/07/18 12:35 BP 153/83 H 09/07/18 12:35 Pulse Ox 95 09/07/18 12:35
[2018-09-07] MEDS ORDERED: ONDANSETRON INJ 2 MG/ML 2 ML VIAL IV PRN (12:49)
[2018-09-07] MEDS ORDERED: fentaNYL citrate 100 MCG/2 ML VIAL IV PRN (12:49)
[2018-09-07] MEDS ORDERED: ePHEDrine sulfate 50 MG/ML AMP IV PRN (12:49)
[2018-09-07] MEDS ORDERED: LABETALOL HCL IV 5 MG/ML 20ML IV PRN (12:49)
[2018-09-07] MEDS ORDERED: ATROPINE SULFATE 0.1 MG/ML 10ML SYR IV PRN (12:49)
[2018-09-07] MEDS ORDERED: PHENYLEPHRINE 100MCG/ML 5ML SYR IV PRN (12:49)
--- NOTE | 2018-09-07 12:53 | History & Physical Bridge Note ---
Date of Service September 07, 2018 History & Physical Bridge Note I have examined the patient, reviewed the History & Physical and in the interval since the performance of the History & Physical I have noted the following changes of clinical significance: no changes noted
[2018-09-07] MEDS ORDERED: CEFAZOLIN 250 MG/ML 1 GM VIAL ONE (13:12)
--- NOTE | 2018-09-07 13:28 | Operative Report ---
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 Risks and benefits discussed. Description of Procedure Patient was consented and brought back to the operating room. Patient was placed under anesthesia in the supine position and moved to the dorsal lithotomy position. Patient was prepped and draped in the regular sterile fashion. A time out was completed. A 30degree Cystoscope was placed into the bladder and the entire bladder was examined. The UO's were identified. The left UO was cannulized with a catheter and a retrograde pyelogram was completed. A wire was then placed. With the wire in place, a 6 Fr Double J stent was placed. It was confirmed with fluoroscopy. With the stent in place, the bladder was emptied. The scope was removed. The patient was cleaned, aroused from anesthesia, and transferred to the pacu in stable condition having tolerated the procedure well with no complications. I was present and participated in all aspects of the procedure. The patient will be monitored in the PACU until transferred. I attest to the content of the Intraoperative Record and any orders documented therein. Any exceptions are noted below.
--- NOTE | 2018-09-07 13:52 | Anesthesiology Progress Note ---
Date of Service September 07, 2018 Anesthesia Post Procedure Vital Signs Vital Signs: Temp Pulse Pulse Pulse Pulse Resp BP 09/07/18 13:50 36.5 C 58 L 16 09/07/18 13:40 57 L 16 09/07/18 13:32 36.4 C L 65 10 L 09/07/18 12:35 37 C 63 20 09/07/18 10:52 37.0 C 60 22 09/07/18 07:33 36.8 C 74 20 09/06/18 22:54 36.6 C 58 L 16 09/06/18 16:25 36.4 C L 56 L 18 09/06/18 16:07 60 18 115/68 09/06/18 15:59 64 18 09/06/18 14:48 52 L 18 BP Pulse Ox 09/07/18 13:50 113/76 98 09/07/18 13:40 111/62 98 09/07/18 13:32 100/65 93 09/07/18 12:35 153/83 H 95 09/07/18 10:52 120/64 94 09/07/18 07:33 120/72 95 09/06/18 22:54 117/62 93 09/06/18 16:25 128/81 96 09/06/18 16:07 100 09/06/18 15:59 131/76 96 09/06/18 14:48 126/72 Pain Intensity Left Flank: Pain Intensity: 3 Transfer of Care Handoff Completed per policy Notes Mental Status: alert / awake / arousable Patient Amnestic to Procedure: Yes Nausea / Vomiting: adequately controlled Pain: adequately controlled Airway Patency, RR, SpO2: stable & adequate BP & HR: stable & adequate Hydration State: stable & adequate Anesthetic Complications: no major complications apparent and Pt Satisfied with anesthetic care
--- NOTE | 2018-09-07 13:52 | Fluoroscopy Report ---
FL retrograde includes kub HISTORY: Left ureteral stent placement. FLUOROSCOPY TIME: 16 seconds. FINDINGS: 3 fluoroscopic spot images were submitted for review. Retrograde opacification of the left renal collecting system with placement of a left ureteral stent. Only the distal portion of the stent is identified and appears to be in good position. IMPRESSION: Fluoroscopy provided for left ureteral stent placement.. Electronically signed by: Kj Pierce M.D. 09/07/2018 1:51 PM
[2018-09-07] MEDS: cefTRIAXone SODIUM 2,000 MG in DEXTROSE 5% 50 ML IV SCH (17:59)
--- NOTE | 2018-09-07 19:54 | Hospitalist Progress Note ---
Date of Service September 07, 2018 Assessment & Plan (1) Kidney stones: Presented with left-sided flank pain, usually colic assist with the nausea History of recurrent ureteric stone in the past had multiple lithotripsy ureteric stent placement, patient is known to Oscar Vaughan physician ur ology CT abdomen pelvis without contrast: IMPRESSION: 1. Obstructing or partially obstructing 6 mm calculus at the left ureterovesical junction new from prior exam. Persistence nonobstructing 6 mm calculus in the distal left ureter. Nonobstructing bladder calculus also noted, new from prior. 2. Moderate left hydroureteronephrosis. Innumerable nonobstructing left renal calculi. Appreciate input from urology, status post cystoscopy/left ureteric stent placement Patient reports symptomatic improvement after stent placement, has minimum flank pain, no nausea, diet advanced tolerating well, remains afebrile Had one episode of hematuria after stent placed placement, Urine is clear Patient will be observed overnight, plan for discharge home tomorrow if remains clinically stable Present on Admission?: Yes (2) Hydronephrosis with urinary obstruction due to ureteral calculus: Management outlined as above Plan for clinic visit with urology in a week, for ureteric stent removal, and possible lithotripsy for obstructed ureteric stone (3) Hydroureteronephrosis: Left-sided hydroureteronephrosis secondary to obstructed ureteric stone, Status post ureteric stent placement Patient will be followed up with [facility] urology and outpatient CODE STATUS: Full code DVT prophylaxis: SCD and teds, patient is encouraged to ambulate Disposition: Patient will be discharged home tomorrow if remains medically stable Subjective Status post cystoscopy with left ureteric stent placement today, patient reports of improvement of abdominal pain/flank pain, no nausea vomiting Afebrile Diet advanced, tolerating well Physical Exam Constitutional: WD/WN, vitals as above no acute distress Eyes: PERRL, conjunctivae normal, anicteric sclerae Neck: normal visual inspection and trachea midline Respiratory: normal respiratory effort; no respiratory distress Auscultation: lungs clear to auscultation bilaterally; no rales and no rhonchi Cardiovascular: Rate/Rhythm: regular rate and regular rhythm Heart Sounds: no gallop and no murmur Vessels: no JVD and no carotid bruit Extremities: no calf tenderness and no edema Gastrointestinal (Abdomen): Inspection/Auscultation: normal bowel sounds; abdomen not distended Percussion/Palpation: abdomen soft Musculoskeletal: Head/Neck/Chest: normocephalic Spine: normal cervical ROM Extremities: no muscle atrophy, no cyanosis and no clubbing Skin: no rashes, warm and dry Psychiatric: A+Ox3, euthymic affect Orientation: alert and oriented x 3 Results & Data Vital Signs (Past 12 Hours) Vital Signs Temp Pulse Pulse Resp BP Pulse Ox 09/07/18 18:30 36.4 C L 19 169/82 H 94 09/07/18 16:47 71 19 133/80 95 09/07/18 15:47 65 18 133/77 94 09/07/18 14:38 53 L 19 103/71 95 09/07/18 14:00 37.1 C 60 18 120/78 95 09/07/18 13:50 36.5 C 58 L 16 113/76 98 09/07/18 13:40 57 L 16 111/62 98 09/07/18 13:32 36.4 C L 65 10 L 100/65 93 09/07/18 12:35 37 C 63 20 153/83 H 95 09/07/18 10:52 37.0 C 60 22 120/64 94
[2018-09-08] MEDS: LACTATED RINGER'S 1,000 ML IV SCH ×2 (02:44→11:00)
[2018-09-08 07:50] LABS: BUN Creatinine Ratio 16.2 (10-20); Calcium 8.4 mg/dl (8.5-10.1); Creatinine Clr Calc Pharmacy 78.4 ml/min; Est GFR (African American) 94.7; Est GFR (Non-African American) 81.7; Potassium 3.8 mmol/L (3.5-5.1)
--- NOTE | 2018-09-08 12:53 | Discharge Summary ---
Date of Service September 08, 2018 Admission HPI Per Admitting Provider This is a 63 y/o male with a PMH of recurrent nephrolithiasis, melanoma and basal cell carcinoma who presents to the ED today with left flank pain, nausea and vomiting, found secondary to obstructing left UVJ stone. Last week, pt had a one day episode of gross hematuria but no pain - resolved without intervention and felt fine until this morning. Around 8 am today, pt started with left flank pain that radiates to left thoracic area and LLQ of abdomen. No radiation to groin. Associated nausea with one episode of non-bloody emesis. Pain at its worst was 8-9 out of 10. In ED, pt has received morphine, toradol, zofran and compazine for symptoms with partial improvement. No gross hematuria today. Pt had chills this morning but denies fevers or sweats. He reports that his last episode of obstructing stone was a few years ago. He was seen by Dr. Maidson for urology in the past but has not been seen for a few years since he was doing better. Pt reports that he drinks around 1 gallon of water per day, which seems to help with stone prevention. He does drink ~24 oz of coffee daily but denies iced tea/soda. He did try two Percocet that he had leftover from episode in 2016 for his pain this morning but no relief. Principal Diagnosis Obstructive left-sided ureteric stone/hydroureteronephrosis on left side, status post left sided ureteric stent placement Discharge Exam Constitutional WD/WN, vitals as above no acute distress Eyes PERRL, conjunctivae normal, anicteric sclerae Neck normal visual inspection and trachea midline Respiratory normal respiratory effort; no respiratory distress Auscultation: lungs clear to auscultation bilaterally; no rales and no rhonchi Cardiovascular Rate/Rhythm: regular rate and regular rhythm Heart Sounds: no gallop and no murmur Vessels: no JVD and no carotid bruit Extremities: no calf tenderness and no edema Gastrointestinal (Abdomen) Inspection/Auscultation: normal bowel sounds; abdomen not distended Percussion/Palpation: abdomen soft Musculoskeletal Head/Neck/Chest: normocephalic Spine: normal cervical ROM Extremities: no muscle atrophy, no cyanosis and no clubbing Skin no rashes, warm and dry Psychiatric A+Ox3, euthymic affect Orientation: alert and oriented x 3 Discharge Data Allergies Allergy/AdvReac Type Severity Reaction Status Date / Time No Known Allergies Allergy Unknown Verified 09/06/18 11:37 Consultations 09/06/18 14:04 ED Decision to Admit Stat 09/06/18 17:11 Consult Urology Routine Procedures Performed Operation Date: 09/07/18 11:10 Actual Procedures p Cystoscopy, Left ureteral Stent Placement(Left) - Lam Bolton II, DO Ordered Studies 09/06/18 11:21 CT abd pelvis IV con only Stat 09/07/18 12:00 FL retrograde includes kub Routine Hospital Course (1) Kidney stones: Presented with left-sided flank pain, usually colic assist with the nausea History of recurrent ureteric stone in the past had multiple lithotripsy ureteric stent placement, patient is known to [facility] ur ology CT abdomen pelvis without contrast: IMPRESSION: 1. Obstructing or partially obstructing 6 mm calculus at the left ureterovesical junction new from prior exam. Persistence nonobstructing 6 mm calculus in the distal left ureter. Nonobstructing bladder calculus also noted, new from prior. 2. Moderate left hydroureteronephrosis. Innumerable nonobstructing left renal calculi. Appreciate input from urology, status post cystoscopy/left ureteric stent placement yesterday 09/07/2018 Patient reports symptomatic improvement after stent placement, has minimum flank pain, no nausea, diet advanced tolerating well, remains afebrile Had one episode of hematuria after stent placed placement, Urine is clear Patient did very well overnight, no pain or discomfort, hematuria has resolved, passed to renal stone today, Ordered for KUB abdomen to assess for passage of stone Patient evaluated by urology this morning, stable to be discharged home (2) Hydronephrosis with urinary obstruction due to ureteral calculus: Management outlined as above Plan for clinic visit with urology in a week, for ureteric stent removal, and possible lithotripsy for obstructed ureteric stone (3) Hydroureteronephrosis: Left-sided hydroureteronephrosis secondary to obstructed ureteric stone, Status post ureteric stent placement Patient will be followed up with [facility] urology and outpatient CODE STATUS: Full code DVT prophylaxis: SCD and teds, patient is encouraged to ambulate Disposition: Stable to be discharged home today Total Time Total Time Spent Total Time Spent (In Minutes): Approximately 45 minutes Total Time Includes: Examination of the Patient, Discharge Planning and Medication Reconciliation Discharge Plan Discharge Items Patient Disposition: Home - Self-Care Reason For Visit: KIDNEY STONE Discharge Diagnosis: Obstructed left-sided ureteric stone, status post stent pl acement Discharge Goals: Decrease discomfort, Diagnostic testing and Therapeutic intervention Activity: Resume your previous activity Non-emergency contact: Primary Care Provider Call non-emergency contact if: you have any medication questions Follow-up/Referrals: Lam Bolton II, DO [Physician] - (In a week, office will call to schedule appointment ) Soo Christopher DO [Primary Care Provider] - 09/20/18 10:55 am Diet: Heart Healthy Addtl Provider Instructions: Follow-up with urology in a week, office will call to schedule an appointment Prescriptions: Continued potassium citrate 10 mEq (1,080 mg) tablet extended release 10 meq PO BID RF: 0 aspirin 81 mg Tablet,Delayed Release (Dr/Ec) 81 mg PO DAILY RF: 0 red yeast rice 600 mg Tablet 1,200 mg PO DAILY RF: 0 lutein 6 mg Tablet 6 mg PO DAILY RF: 0 Fish Oil 950 mg-320 mg- 630 mg-1,360 mg Capsule 1 cap PO DAILY RF: 0 Stand-Alone Forms: [facility], [facility]–1983 Discharge Orders: Discharge Order (Routine); Ordered 09/08/18 Ordered By: Erica Patricio Admission Data Admit Date/Time: 09/06/18 15:27 Attending Provider: Erica Patricio Admit Provider: Erica Patricio Primary Care Provider: Soo Christopher Other Providers: Erica Patricio ; Edvin Sommer ; Rd Madison ; Eagle Gomez I. ; Armand Coates ; Winter Alvarado ; Lam Bolton II ; Lorrie Reeves Service: Surgical Services
--- NOTE | 2018-09-08 14:54 | XRay Report ---
KUB HISTORY: RENAL STONE COMPARISON: KUB 05/14/2012. Abdomen and pelvis CT 09/06/2018. FINDINGS: The bowel gas pattern is unremarkable. There are no dilated loops of small bowel to suggest an obstruction. Extensive nephrocalcinosis of the left kidney. A left ureteral stent appears in goo d position at no change in position of the 2 distal left ureteral stones measuring 6 mm and 5 mm in s ize. No right renal or right ureteral calculi. No pneumoperitoneum or pneumatosis. IMPRESSION: 1. A left ureteral stent is in good position. 2. No change in the distal left ureteral stones. 3. Extensive left nephrocalcinosis. Electronically signed by: Kj Pierce M.D. 09/08/2018 2:53 PM
[2018-09-14 08:31] LABS: Component 2 DNR; Source Kidney
== END 2018-09-08 14:47 | disposition home or self-care (01) | DRG 661 ==
LOC: ED 10:40 → 3W 15:27